=== PATIENT | male | born 1995 | race Caucasian/White ===

== ENCOUNTER 2017-10-23 | Emergency (ER) | payer OTHER ==
--- NOTE | 2017-10-24 00:14 | EDPHYS ---
Physician Documentation [facility] Name: Héctor Ramos III Age: 22 yrs Sex: Male : 1995 Arrival Date: 10/23/2017 Time: 23:54 Bed 20 Private MD: ED Physician Héctor Harvey HPI: 10/24 00:11 This 22 yrs old Male presents to ER via Ambulatory with complaints of gs Abdominal Pain. 00:11 The patient presents with abdominal pain that is diffuse. Onset: The symptoms/episode gs began/occurred today, at 19:30. The symptoms do not radiate. Associated signs and symptoms: Pertinent positives: diarrhea, Pertinent negatives: vomiting. The symptoms are described as crampy, intermittent. Modifying factors: The symptoms are alleviated by nothing, the symptoms are aggravated by nothing. Severity of pain: At its worst the pain was moderate in the emergency department the pain has resolved. The patient has experienced similar episodes in the past, a few times. Historical: - Allergies: 00:11 PENICILLINS; bb - Home Meds: 00:11 None [Active]; bb - PMHx: 00:11 None; bb - PSHx: 00:11 None; bb - Immunization history:: Adult Immunizations up to date. - Social history:: Smoking status: Patient uses tobacco products, smokes one-half pack cigarettes per day, Patient uses alcohol, occasionally. Patient/guardian denies using street drugs. ROS: 00:11 All other systems are negative. gs Exam: 00:11 Head/Face: Normocephalic, atraumatic. Eyes: Pupils equal round and reactive to light, gs extra-ocular motions intact. Lids and lashes normal. Conjunctiva and sclera are non-icteric and not injected. Cornea within normal limits. Periorbital areas with no swelling, redness, or edema. ENT: Nares patent. No nasal discharge, no septal abnormalities noted. Tympanic membranes are normal and external auditory canals are clear. Oropharynx with no redness, swelling, or masses, exudates, or evidence of obstruction, uvula midline. Mucous membranes moist. Neck: Trachea midline, no thyromegaly or masses palpated, and no cervical lymphadenopathy. Supple, full range of motion without nuchal rigidity, or vertebral point tenderness. No Meningismus. Chest/axilla: Normal chest wall appearance and motion. Nontender with no deformity. No lesions are appreciated. Cardiovascular: Regular rate and rhythm with a normal S1 and S2. No gallops, murmurs, or rubs. Normal PMI, no JVD. No pulse deficits. Respiratory: Lungs have equal breath sounds bilaterally, clear to auscultation and percussion. No rales, rhonchi or wheezes noted. No increased work of breathing, no retractions or nasal flaring. Back: No spinal tenderness. No costovertebral tenderness. Full range of motion. Male : Normal genitalia with no discharge or lesions. Skin: Warm, dry with normal turgor. Normal color with no rashes, no lesions, and no evidence of cellulitis. MS/ Extremity: Pulses equal, no cyanosis. Neurovascular intact. Full, normal range of motion. Neuro: Awake and alert, GCS 15, oriented to person, place, time, and situation. Cranial nerves II-XII grossly intact. Motor strength 5/5 in all extremities. Sensory grossly intact. Cerebellar exam normal. Normal gait. 00:11 Constitutional: The patient appears alert, awake. 00:11 Abdomen/GI: Inspection: abdomen appears normal, Palpation: abdomen is soft and non-tender, in all quadrants, rebound tenderness, is not appreciated. Vital Signs: 00:11 BP 120 / 70; Pulse 60; Resp 18 S; Temp 97.5(O); Pulse Ox 98% on R/A; Weight 56.7 kg bb (R); Height 5 ft. 10 in. (177.80 cm) (R); Pain 8/10; 00:11 Body Mass Index 17.94 (56.70 kg, 177.80 cm) bb MDM: 00:11 Patient medically screened. gs 00:11 Differential diagnosis: gastritis, gastroesophageal reflux disease, gastroenteritis. gs Data reviewed: vital signs, nurses notes. ED course: pt no distress no pain and ab exam nontender. will watch at home pt amenable will rx pepcid and zofran. Administered Medications: No medications were administered Disposition: 10/24/17 00:14 Discharged to Home. Impression: Generalized abdominal pain, Diarrhea, unspecified. - Condition is Stable. - Discharge Instructions: Abdominal Pain, Adult, Diarrhea. - Prescriptions for Pepcid 20 mg Oral Tablet - take 1 tablet by ORAL route every 12 hours for 10 days; 20 tablet. Zofran 4 mg Oral Tablet - take 1 tablet by ORAL route every 12 hours As needed; 10 tablet. - Medication Reconciliation Form, Thank You Letter, Antibiotic Education, Prescription Opioid Use form. - Follow up: Private Physician; When: 2 - 3 days; Reason: Re-evaluation by your physician. Signatures: Maru Omalley, RN RN Héctor Bundy MD MD gs Peltier, Brian, RN RN bp
--- NOTE | 2017-10-24 00:14 | ER ---
Nurse's Notes [facility] Name: Héctor Ramos III Age: 22 yrs Sex: Male : 1995 Arrival Date: 10/23/2017 Time: 23:54 Bed 20 Private MD: Diagnosis: Generalized abdominal pain;Diarrhea, unspecified Presentation: 10/24 00:09 Presenting complaint: Patient states: he started having cramping abdominal pain since bb approx 1930 tonight denies vomiting states he had one episode of diarrhea, also he has had similar symptoms in the past but they went away. Transition of care: patient was not received from another setting of care. Onset of symptoms was October 23, 2017 at 19:30. Care prior to arrival: None. 00:09 Method Of Arrival: Ambulatory bb 00:09 Acuity: KATIE 3 bb Triage Assessment: 00:15 General: Appears in no apparent distress. comfortable, slender, Behavior is calm, bp cooperative, appropriate for age. Pain: Denies pain. GI: Abdomen is flat, Abd is soft and non tender X 4 quads. Historical: - Allergies: 00:11 PENICILLINS; bb - Home Meds: 00:11 None [Active]; bb - PMHx: 00:11 None; bb - PSHx: 00:11 None; bb - Immunization history:: Adult Immunizations up to date. - Social history:: Smoking status: Patient uses tobacco products, smokes one-half pack cigarettes per day, Patient uses alcohol, occasionally. Patient/guardian denies using street drugs. Screenin:15 Abuse screen: Denies threats or abuse. Denies injuries from another. Nutritional bp screening: No deficits noted. Tuberculosis screening: No symptoms or risk factors identified. Fall Risk None identified. Assessment: 00:10 Reassessment: SEE TRIAGE NOTE. bp 00:15 GI: Bowel sounds present X 4 quads. Abd is soft and non tender X 4 quads. bp 00:15 Pain: Denies pain. bp 00:20 Reassessment: PT D/C HOME AMBULATORY, DX WITH NONSPECIFIC DIARRHEA. bp Vital Signs: 00:11 BP 120 / 70; Pulse 60; Resp 18 S; Temp 97.5(O); Pulse Ox 98% on R/A; Weight 56.7 kg bb (R); Height 5 ft. 10 in. (177.80 cm) (R); Pain 03/17; 00:11 Body Mass Index 17.94 (56.70 kg, 177.80 cm) bb ED Course: 10/23 23:54 Patient arrived in ED. ds1 10/24 00:03 Héctor Harvey MD is Attending Physician. gs 00:10 Triage completed. bb 00:11 Arm band placed on Patient placed in an exam room, on a stretcher, on pulse oximetry. bb 00:13 Immanuel Gomez, RN is Primary Nurse. bp 00:21 Patient has correct armband on for positive identification. Bed in low position. Call bp light in reach. Side rails up X2. 00:21 No provider procedures requiring assistance completed. Patient did not have IV access bp during this emergency room visit. Administered Medications: No medications were administered Outcome: 00:14 Discharge ordered by . gs 00:21 Discharged to home ambulatory. bp 00:21 Condition: stable 00:21 Discharge instructions given to patient, Instructed on discharge instructions, follow up and referral plans. Demonstrated understanding of instructions, follow-up care, medications, Prescriptions given X 2. 00:23 Patient left the ED. bp Signatures: Alannah Carter ds1 Maru Omalley, RN RN bb Héctor Harvey MD MD gs Peltier, Brian, RN RN bp
== END 2017-10-24 00:23 | disposition home or self-care (01) ==
CPT/HCPCS: 99283